=== PATIENT | male | born 1960 | race Caucasian/White ===

== ENCOUNTER 2021-04-03 16:50 | Emergency (ER) | payer BC ==
[2021-04-03] MEDS ORDERED: Sodium Chloride 0.9% 1,000 ML IV ONE (16:53)
[2021-04-03] MEDS ORDERED: Sodium Chloride 0.9% 10 ML Syringe FLUSH PRN (16:53)
[2021-04-03] MEDS ORDERED: Ondansetron 4 MG/2 ML SDV IVPUSH ONE (16:53)
--- NOTE | 2021-04-03 16:58 | EDM.PDOC ---
ED HPI GENERAL MEDICAL PROBLEM - General Chief Complaint: Neurological Problem Stated Complaint: Dizzy, Diaphoretic Time Seen by Provider: 04/03/21 16:52 Source of Information: Reports: Patient - History of Present Illness INITIAL COMMENTS - FREE TEXT/NARRATIVE: Donovan is a 61 y/o male who is brought to the ER via POV by Security from the [facility] in [place]. He had started his shift about 3 pm and then shortly afterwards he became dizzy and sweaty and a bit confused. Staff there did get him into a cool office, but he seemed disoriented and was still not improving so they called the ER ad brought him here. He denies any chest pain. Has not had this happen to him before. He did report eating lunch today and drinking water and orange juice. - Related Data Allergies Allergy/AdvReac Type Severity Reaction Status Date / Time No Known Allergies Allergy Verified 04/03/21 17:05 Home Meds: Home Meds Simvastatin [Zocor] 20 mg PO BEDTIME 04/03/21 [History] Review of Systems - Review of Systems Review Of Systems: See Below Constitutional: Reports: Weakness Eyes: Reports: No Symptoms Ears: Reports: Dizziness Nose: Reports: No Symptoms Mouth/Throat: Reports: No Symptoms Respiratory: Reports: No Symptoms Cardiovascular: Reports: No Symptoms GI/Abdominal: Reports: Nausea Genitourinary: Reports: No Symptoms Musculoskeletal: Reports: No Symptoms Skin: Reports: Diaphoresis Neurological: Reports: Dizziness, Headache, Weakness Psychiatric: Reports: Confusion ED EXAM, GENERAL - Physical Exam Exam: See Below General Appearance: Alert, WD/WN (Adult male, appears to not feel well. Can answer questions, but looks weak and needs standby assistance to transfer.), No Apparent Distress, Other Eye Exam: Bilateral Eye: PERRL Ears: Normal External Exam, Normal Canal, Hearing Grossly Normal, Normal TMs Nose: Normal Inspection, Normal Mucosa Throat/Mouth: Normal Inspection, Normal Voice Head: Atraumatic, Normocephalic Neck: Supple Respiratory/Chest: No Respiratory Distress, Lungs Clear, Chest Non-Tender Cardiovascular: Normal Peripheral Pulses, Regular Rate, Rhythm GI/Abdominal: Normal Bowel Sounds, Soft (Male) Exam: Deferred Rectal (Males) Exam: Deferred Back Exam: Normal Inspection, Full Range of Motion Extremities: Normal Inspection, Normal Range of Motion, No Pedal Edema, Normal Capillary Refill Neurological: Alert, Oriented, CN II-XII Intact Psychiatric: Normal Affect Skin Exam: Warm, Diaphoretic, Pallor (slightly pale) Lymphatic: No Adenopathy #1 Interpretation EKG Date: 04/03/21 Time: 17:07 Rhythm: NSR Rate (Beats/Min): 69 [place]: Normal P-Wave: Present QRS: Normal ST-T: Normal QT: Normal EKG Interpretation Comments: NSR Course - Vital Signs Text/Narrative:: 1651 The patient was seen by the GERIATRIC NURSING ASSISTANT. Labs and EKG ordered on arrival. NS 1 liter started and he was given Zofran 4mg IVP x 1. 1725 EKG reviewed-note NSR. 1730 Still nauseated and not feeling better yet. IV fluids continue. Reglan 10mg IVP ordered for persistent nausea. Labs reviewed. CBC neg, Lactic Acid=2.8, BUN=23, Virhasz=625. Trop=0.000. Favor Heat-Related Illness at this time. Will continue IV rehydration and monitor patient. 1809 Still nauseated and vomiting. Compazine 10mg IVP ordered. IV fluids infusing, waiting for patient to void. 1925 UA results reviewed. Note + ketones. Patient reports dizziness is improved, but still lightheaded. Labs negative. Still favor Heat Related Illness, but will continue IV fluids and reassess. Last Recorded V/S: Last Vital Signs Temp 36.4 C 04/03/21 16:50 Pulse 74 04/03/21 17:40 Resp 11 L 04/03/21 17:40 BP 130/76 04/03/21 17:40 Pulse Ox 95 04/03/21 17:40 - Orders/Labs/Meds Orders: Active Orders 24 hr Category Date Time Status EKG Documentation Completion [RC] ASDIRECTED Care 04/03/21 17:00 Active EKG Documentation Completion [RC] STAT Care 04/03/21 16:53 Active Sodium Chloride 0.9% [Saline Flush] Med 04/03/21 16:53 Active 10 ml FLUSH ASDIRECTED PRN Saline Lock Insert [OM.PC] Stat Oth 04/03/21 16:53 Ordered Medication Orders Sodium Chloride (Sodium Chloride 0.9% 10 Ml Syringe) 10 ml FLUSH ASDIRECTED PRN PRN Reason: Keep Vein Open Labs: Laboratory Tests 0604/03/21 04/03/21 Range/Units 16:55 16:55 16:55 WBC 7.9 (4.0-10.2) K/uL RBC 5.35 (4.33-5.41) M/uL Hgb 16.0 (13.1-16.8) g/dL Hct 45.8 (39.0-49.0) % MCV 85.6 (84.0-98.0) fL MCH 29.9 (28.2-33.3) pg MCHC 34.9 (31.7-36.0) g/dL RDW 12.4 (11.2-14.1) % Plt Count 227 (150-350) K/uL Neut % (Auto) 60.5 (45.0-80.0) % Lymph % (Auto) 29.6 (10.0-50.0) % [place] % (Auto) 8.8 (2.0-14.0) % Eos % (Auto) 0.8 (0.0-5.0) % Baso % (Auto) 0.3 (0.0-2.0) % Neut # (Auto) 4.76 (1.40-7.00) K/uL Lymph # (Auto) 2.32 (0.50-3.50) K/uL [place] # (Auto) 0.69 (0.00-1.00) K/uL Eos # (Auto) 0.06 (0.00-0.50) K/uL Baso # (Auto) 0.02 (0.00-0.20) K/uL PT 9.9 (9.5-12.0) SEC INR 1.0 APTT 21.6 L (24.5-32.8) SEC Sodium 144 (136-145) mmol/L Potassium 3.6 (3.5-5.1) mmol/L Chloride 105 (98-107) mmol/L Carbon Dioxide 24.9 (21.0-32.0) mmol/L BUN 23 H (7-18) mg/dL Creatinine 1.06 (0.51-1.17) mg/dL Est Cr Clr Drug Dosing 78.93 mL/min Estimated GFR (MDRD) > 60 mL/min Glucose 141 H (70-99) mg/dL Lactic Acid (0.4-2.0) mmol/L Calcium 9.0 (8.5-10.1) mg/dL Magnesium 2.0 (1.8-2.4) mg/dL Total Bilirubin 0.4 (0.2-1.0) mg/dL AST 20 (15-37) U/L ALT 37 (12-78) U/L Alkaline Phosphatase 65 (46-116) IU/L Troponin I 0.000 (0.000-0.056) ng/mL NT-Pro-B Natriuret Pep 118 (0-125) pg/mL Total Protein 6.9 (6.4-8.2) g/dL Albumin 4.0 (3.4-5.0) g/dL Amylase 32 (25-115) U/L Lipase 70 L (73-393) U/L Specimen Type Urine Color Urine Appearance Urine pH (5.0-9.0) Ur Specific [place] (1.005-1.030) Urine Protein (NEGATIVE) mg/dL Urine Glucose (UA) (NEGATIVE) mg/dL Urine Ketones (NEGATIVE) mg/dL Urine Occult Blood (NEGATIVE) Urine Nitrite (NEGATIVE) Urine Bilirubin (NEGATIVE) Urine Urobilinogen (0.2-1.0) E.U./dL Ur Leukocyte Esterase (NEGATIVE) Urine RBC /HPF Urine WBC /HPF Ur Epithelial Cells /LPF Urine Bacteria (NONE TO FEW) /HPF Ethyl Alcohol 0.000 (0.000-0.080) g/dL 04/03/21 04/03/21 Range/Units 16:55 19:02 WBC (4.0-10.2) K/uL RBC (4.33-5.41) M/uL Hgb (13.1-16.8) g/dL Hct (39.0-49.0) % MCV (84.0-98.0) fL MCH (28.2-33.3) pg MCHC (31.7-36.0) g/dL RDW (11.2-14.1) % Plt Count (150-350) K/uL Neut % (Auto) (45.0-80.0) % Lymph % (Auto) (10.0-50.0) % [place] % (Auto) (2.0-14.0) % Eos % (Auto) (0.0-5.0) % Baso % (Auto) (0.0-2.0) % Neut # (Auto) (1.40-7.00) K/uL Lymph # (Auto) (0.50-3.50) K/uL [place] # (Auto) (0.00-1.00) K/uL Eos # (Auto) (0.00-0.50) K/uL Baso # (Auto) (0.00-0.20) K/uL PT (9.5-12.0) SEC INR APTT (24.5-32.8) SEC Sodium (136-145) mmol/L Potassium (3.5-5.1) mmol/L Chloride (98-107) mmol/L Carbon Dioxide (21.0-32.0) mmol/L BUN (7-18) mg/dL Creatinine (0.51-1.17) mg/dL Est Cr Clr Drug Dosing mL/min Estimated GFR (MDRD) mL/min Glucose (70-99) mg/dL Lactic Acid 2.8 H (0.4-2.0) mmol/L Calcium (8.5-10.1) mg/dL Magnesium (1.8-2.4) mg/dL Total Bilirubin (0.2-1.0) mg/dL AST (15-37) U/L ALT (12-78) U/L Alkaline Phosphatase (46-116) IU/L Troponin I (0.000-0.056) ng/mL NT-Pro-B Natriuret Pep (0-125) pg/mL Total Protein (6.4-8.2) g/dL Albumin (3.4-5.0) g/dL Amylase (25-115) U/L Lipase (73-393) U/L Specimen Type [place] Urine Color Yellow Urine Appearance Clear Urine pH 8.5 (5.0-9.0) Ur Specific [place] 1.020 (1.005-1.030) Urine Protein Trace H (NEGATIVE) mg/dL Urine Glucose (UA) Negative (NEGATIVE) mg/dL Urine Ketones 15 H (NEGATIVE) mg/dL Urine Occult Blood Negative (NEGATIVE) Urine Nitrite Negative (NEGATIVE) Urine Bilirubin Negative (NEGATIVE) Urine Urobilinogen 0.2 (0.2-1.0) E.U./dL Ur Leukocyte Esterase Negative (NEGATIVE) Urine RBC 0-5 /HPF Urine WBC 0-5 /HPF Ur Epithelial Cells Rare /LPF Urine Bacteria Rare (NONE TO FEW) /HPF Ethyl Alcohol (0.000-0.080) g/dL Meds: Medications Generic Name Dose Route Start Last Admin Trade Name Mary Jane PRN Reason Stop Dose Admin Sodium Chloride 10 ml 04/03/21 16:53 Sodium Chloride 0.9% 10 Ml Syringe FLUSH ASDIRECTED PRN Keep Vein Open Discontinued Medications Generic Name Dose Route Start Last Admin Trade Name Mar yJane PRN Reason Stop Dose Admin Sodium Chloride 1,000 mls @ 999 mls/hr 04/03/21 16:53 04/03/21 17:01 Normal Saline IV 04/03/21 17:53 999 mls/hr .BOLUS ONE Administration Lactated Ringer's 1,000 mls @ 999 mls/hr 04/03/21 17:34 04/03/21 17:40 Ringers, Lactated IV 04/03/21 18:34 999 mls/hr .BOLUS ONE Administration Lactated Ringer's 1,000 mls @ 999 mls/hr 04/03/21 19:26 04/03/21 19:32 Ringers, Lactated IV 04/03/21 20:26 999 mls/hr .BOLUS ONE Administration Metoclopramide HCl 10 mg 04/03/21 17:28 04/03/21 17:40 Metoclopramide 10 Mg/2 Ml Sdv IVPUSH 04/03/21 17:29 10 mg ONETIME ONE Administration Ondansetron HCl 4 mg 04/03/21 16:53 04/03/21 17:03 Ondansetron 4 Mg/2 Ml Sdv IVPUSH 04/03/21 16:54 4 mg ONETIME ONE Administration Prochlorperazine Edisylate 10 mg 04/03/21 17:58 04/03/21 18:03 Prochlorperazine 10 Mg/2 Ml Sdv IVPUSH 04/03/21 17:59 10 mg ONETIME ONE Administration Departure - Departure Time of Disposition: 20:26 Disposition: Home, Self-Care 01 Condition: Good Clinical Impression: Heat exhaustion, unspecified, initial encounter - Discharge Information *PRESCRIPTION DRUG MONITORING PROGRAM REVIEWED*: No *COPY OF PRESCRIPTION DRUG MONITORING REPORT IN PATIENT ANYI: No Instructions: Heat Exhaustion Referrals: Humaira Mathew PA-C [Primary Care Provider] - Forms: ED Department Discharge Sepsis Event Note (ED) - Focused Exam Vital Signs: Vital Signs Temp Pulse Resp BP Pulse Ox 04/03/21 17:40 74 11 L 130/76 95 04/03/21 17:05 71 13 132/69 95 04/03/21 16:50 36.4 C 62 12 132/69 95 - My Orders Last 24 Hours: My Active Orders 04/03/21 16:53 EKG Documentation Completion [RC] STAT Sodium Chloride 0.9% [Saline Flush] 10 ml FLUSH ASDIRECTED PRN Saline Lock Insert [OM.PC] Stat 04/03/21 17:00 EKG Documentation Completion [RC] ASDIRECTED - Assessment/Plan Last 24 Hours: My Active Orders 04/03/21 16:53 EKG Documentation Completion [RC] STAT Sodium Chloride 0.9% [Saline Flush] 10 ml FLUSH ASDIRECTED PRN Saline Lock Insert [OM.PC] Stat 04/03/21 17:00 EKG Documentation Completion [RC] ASDIRECTED Assessment:: 1)Heat Related Illness Plan: -Zofran (Ondanestron) 4mg oral every 4 hours as needed for nausea #10(Rx) -Use ibuprofen or acetaminophen as needed for pain -Rest in an air conditioned house with a fan as needed. -Drink plenty of fluids. Sports drinks including Poweraid or Gatorade may be helpful. -No work the rest of tonight or tomorrow. Work note written. -Follow up tomorrow with your PCP for recheck. -If you have any further symptoms or do not seem to be getting getter, return to the ER.
[2021-04-03 17:18] LABS: PTT,PARTIAL THROMBOPLSTIN TIME 21.6 SEC (24.5-32.8)
[2021-04-03 17:27] LABS: CHLORIDE,CL 105 mmol/L (98-107); SODIUM,NA 144 mmol/L (136-145)
[2021-04-03] MEDS ORDERED: Metoclopramide 10 MG/2 ML SDV IVPUSH ONE (17:28)
[2021-04-03] MEDS ORDERED: Lactated Ringers 1,000 ML IV ONE ×2 (17:34→19:26)
[2021-04-03] MEDS ORDERED: Prochlorperazine 10 MG/2 ML SDV IVPUSH ONE (17:58)
== END 2021-04-03 21:10 | disposition home or self-care (01) ==
LOC: LL.ED 16:50
DX: T67.5XXA Heat exhaustion, unspecified, initial encounter (principal); Z79.899 Other long term (current) drug therapy
CPT/HCPCS: 36415; 80053; 80307; 81001; 82150; 83605; 83690; 83735; 83880; 84484; 85025; 85610; 85730; 93005; 93010; 96374; 96375; 99283; 99285-25; J0780; J2405; J2765; J7030; J7120